=== PATIENT | female | born 1945 | race Caucasian/White ===

== ENCOUNTER 2016-06-21 15:07 | Inpatient (IN) | payer MEDICARE, BC ==
[~2016-06-21] VITALS: Ht 167.6 cm; Wt 81.3 kg
[2016-06-22] MEDS ORDERED: MEDR2.5T2 PO (09:31)
[2016-06-22] MEDS ORDERED: LIPI10TA PO (09:31)
[2016-06-22] MEDS ORDERED: ESTR1 PO (09:31)
[2016-06-22] MEDS ORDERED: OCUVCAP3 PO (09:41)
[2016-06-27] VITALS (10 sets, daily range): BP systolic 100–148; BP diastolic 55–80; PULSE 81–107; RESP 11–16; TEMP 97.6–98.9; O2SAT 89–98
[2016-06-27] MEDS ORDERED: HEPARIN SODIUM - SQ 10,000 UNITS/ML VIAL SQ ONE (05:00)
[2016-06-27] MEDS ORDERED: ceFAZolin INJ 1,000 MG VIAL IV ONE (05:00)
[2016-06-27] MEDS ORDERED: AMINOCAPROIC ACID INJ 250 MG/ML 20 ML VIAL IV ONE (05:00)
[2016-06-27] MEDS ORDERED: NEOSTIGMINE METHYLSULFATE 10 MG/10 ML VIAL IV PUSH ONE (05:00)
[2016-06-27] MEDS ORDERED: MAGNESIUM SULFATE 1000 MG/2 ML VIAL (PED) IV ONE (05:00)
[2016-06-27] MEDS ORDERED: CALCIUM CHLORIDE 10% SOLN 1 GRAM/10 ML SYR IV ONE (05:00)
[2016-06-27] MEDS ORDERED: PROTAMINE SULFATE 250 MG/25 ML VIAL IV ONE ×2 (05:00→12:00)
[2016-06-27] MEDS ORDERED: PHENYLEPHRINE HCL 10 MG/ML VIAL IV ONE (05:00)
[2016-06-27] MEDS ORDERED: LACTATED RINGER'S 1000 ML IV PRN (05:45)
[2016-06-27] MEDS ORDERED: POVIDONE IODINE 5% (ANTISEPSIS KIT) 4 APPLICATIONS EACH NARE PRN (05:45)
[2016-06-27] MEDS ORDERED: SODIUM CHLORIDE 0.9% FLUSH 10 ML FLUSH IV FLUSH PRN (05:45)
[2016-06-27] MEDS ORDERED: ceFAZolin 2 GM PREMIX 50 ML IV SCH (05:45)
[2016-06-27] MEDS ORDERED: CEFAZOLIN 500 MG in NS IRR BTL 500 ML IRRIGATION SCH (05:45)
[2016-06-27] MEDS ORDERED: CHLORHEXIDINE GLUCONATE 2 % 1 PACK (2 CLOTHS) TOPICAL PRN (05:45)
[2016-06-27] MEDS ORDERED: CHLORHEXIDINE GLUCONATE 4% SOLN 120 ML BTL TOPICAL SCH (05:45)
[2016-06-27] MEDS ORDERED: METOPROLOL TARTRATE 25 MG TAB PO SCH (05:45)
[2016-06-27] MEDS ORDERED: SODIUM CHLORID 0.9% 500 ML IV PRN (05:45)
[2016-06-27] MEDS ORDERED: INSULIN REGULAR 100 UNITS in NS 100 ML IV SCH (05:45)
[2016-06-27] MEDS ORDERED: VANCOMYCIN HCL 1000 MG VIAL ONE (06:25)
[2016-06-27] MEDS ORDERED: HEPARIN SODIUM - SQ 10,000 UNITS/ML VIAL ONE (06:25)
[2016-06-27] MEDS ORDERED: ceFAZolin 2 GM PREMIX 50 ML ONE (06:25)
[2016-06-27] MEDS ORDERED: methylPREDNISolone SOD SUCC 125 MG/2 ML VIAL ONE (06:26)
[2016-06-27] MEDS ORDERED: CUSTODIOL HTK IRR SOLN 1,000 ML ONE (07:35)
[2016-06-27] MEDS ORDERED: POTASSIUM CHLORIDE 20 MEQ/10 ML VIAL ONE (07:36)
[2016-06-27] MEDS ORDERED: MANNITOL INJ 50 ML ONE (07:36)
[2016-06-27] MEDS ORDERED: HEPARIN SODIUM - IV 10,000 UNITS/10 ML VIAL ONE (07:36)
[2016-06-27] MEDS ORDERED: SODIUM BICARBONATE 8.4% INJ 50 MEQ/50 ML SYR ONE (07:37)
[2016-06-27] MEDS ORDERED: ALBUMIN HUMAN 25% 12.5 GM/50 ML BAGP IV ONE (07:38)
[2016-06-27] MEDS ORDERED: VECURONIUM BROMIDE 20 MG VIAL IV ONE (12:00)
[2016-06-27] MEDS ORDERED: LACTATED RINGER'S 1000 ML INJ 500 ML IV PRN (12:06)
[2016-06-27] MEDS ORDERED: POTASSIUM CHLOR 20 MEQ PREMIX 100 ML IV PRN ×2 (12:15)
[2016-06-27] MEDS ORDERED: DEXTROSE 50% IN WATER 50 ML VIAL(D50) IV PUSH PRN (12:15)
[2016-06-27] MEDS ORDERED: POTASSIUM CHLORIDE 20 MEQ CONTROLLED RELEASE TAB PO PRN ×2 (12:15)
[2016-06-27] MEDS ORDERED: hydrALAZINE HCL 20 MG/ML VIAL IV PRN (12:15)
[2016-06-27] MEDS ORDERED: ACETAMINOPHEN 650 MG SUPP RECTAL PRN (12:15)
[2016-06-27] MEDS ORDERED: ACETAMINOPHEN 325 MG TAB PO PRN (12:15)
[2016-06-27] MEDS ORDERED: INSULIN REGULAR (IV INFUSION) 100 UNITS in SODIUM CHLORIDE 0.9% INJ 99 ML IV SCH (12:15)
[2016-06-27] MEDS ORDERED: ONDANSETRON HCL 4 MG/2 ML VIAL IV PUSH PRN (12:15)
[2016-06-27] MEDS ORDERED: CALCIUM CHLORIDE 10% 1 GRAM/10 ML VIAL IV PRN (12:15)
[2016-06-27] MEDS ORDERED: MAGNESIUM SULFATE INJ 2 GM in SODIUM CHLORIDE 0.9% INJ 100 ML IV PRN ×4 (12:15)
[2016-06-27] MEDS ORDERED: CLEVIDIPINE INJ 50 ML IV SCH (12:15)
[2016-06-27] MEDS ORDERED: Post-op Orders (for Pharmacy) MISC OTHER ONE (12:15)
[2016-06-27] MEDS ORDERED: MIDAZOLAM HCL 5 MG/5 ML VIAL ONE (13:01)
[2016-06-27] MEDS ORDERED: fentaNYL CITRATE 1000 MCG/20 ML VIAL ONE (13:01)
[2016-06-27] MEDS: ACETAMINOPHEN 1000 MG/100 ML VIAL IV SCH ×2 (13:03→20:40)
[2016-06-27] MEDS: POTASSIUM CHLOR 20 MEQ PREMIX 100 ML IV PRN (13:03)
--- NOTE | 2016-06-27 13:13 | RADRPT ---
EXAM DATE/TIME: 06/27/2016 12:32 [facility] COMPARISON: CHEST SINGLE AP, March 07, 2014, 21:47. INDICATIONS : Post CABG. MEDICAL HISTORY : Hypertension. Hypercholesterolemia. SURGICAL HISTORY : None. ENCOUNTER: Initial ACUITY: 1 day PAIN SCORE: Non-responsive. LOCATION: Bilateral chest FINDINGS: A single view of the chest demonstrates CABG. Right jugular central line with tip in the right atrium . Mediastinal chest tube noted. Nasogastric tube with tip in stomach. Endotracheal tube with tip 5.5 cm above the francis. Bibasilar atelectasis. Heart in the upper limits of normal in size. Osseous str uctures are intact. CONCLUSION: 1. Status post CABG. 2. Bibasilar atelectasis. 3. Support lines and tubes as described above. Blake Cannon MD on June 27, 2016 at 13:09 Board Certified Radiologist. This report was verified electronically.
[2016-06-27] MEDS: CALCIUM CHLORIDE INJ 1 GM in SODIUM CHLORIDE 0.9% INJ 100 ML IV PRN ×2 (13:20→15:28)
[2016-06-27] MEDS ORDERED: RESP: RACEPINEPHRINE 2.25% 0.5 ML NEB NEB PRN (13:45)
[2016-06-27] MEDS ORDERED: RESP: ALBUTEROL 2.5 MG/IPRATROPIUM 0.5 MG NEB (PRN) NEB (13:45)
[2016-06-27] MEDS: RESP: ALBUTEROL 2.5 MG/IPRATROPIUM 0.5 MG NEB (SCH) NEB ×2 (16:53→21:56)
[2016-06-27] MEDS: oxyCODONE/ACETAMINOPHEN 5 MG/325 MG TAB PO PRN (20:39)
[2016-06-27] MEDS ORDERED: AMIODARONE 200 MG TAB PO SCH (21:00)
[2016-06-27] MEDS: METOPROLOL TARTRATE 5 MG/5 ML VIAL IV PUSH PRN ×2 (22:04→23:31)
[2016-06-28] VITALS (16 sets, daily range): BP systolic 107–135; BP diastolic 45–72; PULSE 93–112; RESP 16–20; TEMP 97.8–99.2; O2SAT 94–100
[2016-06-28] MEDS: oxyCODONE/ACETAMINOPHEN 5 MG/325 MG TAB PO PRN ×2 (00:05→03:39)
[2016-06-28] MEDS: ACETAMINOPHEN 1000 MG/100 ML VIAL IV SCH ×2 (01:53→09:37)
[2016-06-28] MEDS: RESP: ALBUTEROL 2.5 MG/IPRATROPIUM 0.5 MG NEB (SCH) NEB ×3 (04:00→19:38)
[2016-06-28 05:20] LABS: HEMATOCRIT 33.4 % (35.0-46.0); MEAN CELL VOLUME 95.4 FL (80.0-100.0); MEAN CORPUSCULAR HEMOGLOBIN 31.5 PG (27.0-34.0); RED CELL DISTRIBUTION WIDTH 13.9 % (11.6-17.2); WHITE BLOOD COUNT 15.6 TH/MM3 (4.0-11.0)
--- NOTE | 2016-06-28 05:32 | RADRPT ---
EXAM DATE/TIME: 06/28/2016 03:59 [facility] COMPARISON: CHEST SINGLE AP, June 27, 2016, 12:32. INDICATIONS : Shortness of breath. MEDICAL HISTORY : None. SURGICAL HISTORY : CABG. ENCOUNTER: Subsequent ACUITY: 4 - 6 days PAIN SCORE: 0/10 LOCATION: Bilateral chest FINDINGS: The cardiac silhouette is enlarged in transverse diameter. There are findings of congestive heart alfa lure with interstitial and alveolar opacity bilaterally. Small left effusion is present. The findings have worsened when compared with the prior examination. CONCLUSION: 1. Cardiomegaly and findings of congestive heart failure. The findings have worsened when compared wi th the prior examination.8 Momo Partida MD on June 28, 2016 at 5:29 Board Certified Radiologist. This report was verified electronically.
[2016-06-28 05:53] LABS: BICARBONATE 19.3 MEQ/L (21.0-32.0); MAGNESIUM 1.7 MG/DL (1.5-2.5); POTASSIUM 3.9 MEQ/L (3.5-5.1)
[2016-06-28] MEDS ORDERED: MAGNESIUM SULFATE 2 GM/NS 100 ML IV ONE ×2 (06:00)
[2016-06-28] MEDS ORDERED: AMIODARONE 150 MG/D5W 97 ML BOLUS 10 MINUTES IV ONE ×2 (06:00)
[2016-06-28] MEDS: PANTOPRAZOLE SOD 40 MG DELAYED RELEASE TAB PO SCH (06:00)
[2016-06-28] MEDS: POTASSIUM CHLOR 20 MEQ PREMIX 100 ML IV PRN (06:24)
[2016-06-28 06:45] LABS: PLATELET COUNT 48 TH/MM3 (150-450); REVIEW FLAG FINAL
--- NOTE | 2016-06-28 07:53 | EKG ---
Date Performed: 06/28/2016 Time Performed: 04:47:36 PTAGE: 70 years EKG: Sinus tachycardia. Left bundle branch block Consider inferior RI, age undetermined Abnormal ECG PREVIOUS TRACING : 06/22/2016 09.16 No significant change from previous tracing noted. DOCTOR: Ruddy Iyer Interpretating Date/Time 06/28/2016 07:52:43
[2016-06-28] MEDS: ESTRADIOL 1 MG TAB PO SCH (09:00)
[2016-06-28] MEDS: ASPIRIN 81 MG CHEW TAB PO SCH (09:00)
--- NOTE | 2016-06-28 09:11 | PD.OP ---
cc: Momo Blackwell MD; Elida Farley MD Operative Report Date of Surgery: June 28, 2016 Preoperative Diagnosis: (1) Shortness of breath (2) LBBB (left bundle branch block) (3) Mitral regurgitation (4) Aortic stenosis due to bicuspid aortic valve (5) Diastolic CHF due to valvular disease Postoperative Diagnosis: same Procedure: Mitral valve repair with a 26 Jon annuloplasty ring AVR with a 21 Trifecta tissue valve THERON Anesthesia: Dr. Morel Surgeon: Elida Farley Clothing Supervisor(s): Jayden Vaughn Operation and Findings: The risks, benefits, complications, treatment options, and expected outcomes were discussed with the patient. The possibilities of reaction to medication, pulmonary aspiration, perforation of viscus, bleeding, recurrent infection, the need for additional procedures, failure to diagnose a condition, and creating a complication requiring transfusion or operation were discussed with the patient. The patient concurred with the proposed plan, giving informed consent. The site of surgery properly noted/marked. The patient was taken to Operating Room, identified as Ana Mccall and the procedure verified as Mitral Valve Repair or Replacement, Aortic Valve Replacement, THERON. A Time Out was held and the above information confirmed. Standard monitoring lines and Singh catheter were placed. General anesthesia was induced. The patient was prepped and draped in a sterile fashion. A median sternotomy was performed and electrocautery was used to obtain hemostasis. The pericardium was opened and a pericardial sling was created using interrupted 0 silk sutures. The patient was heparinized for cardiopulmonary bypass. The heart was instrumented for cardiopulmonary bypass in the usual manner Antegrade custodiol cardioplegia was employed. The patient was placed on cardiopulmonary bypass. The left atrial appendage was resected using a surgical stapler and submitted to pathology. An aortic cross-clamp was applied and the heart was arrested using cold custodiol cardioplegia. Waterston's groove was developed using electrocautery. The left atrium was opened, and the mitral valve was exposed using an automatic retractor. The valve was analyzed and sized to a 26 [place] Jon annuloplasty ring which was seated using several interrupted 2-0 Tycron horizontal mattress sutures. After securing the sutures, the valve repair was tested and felt to be excellent. The left atrium was closed using a running 4-0 Prolene suture and aorta was opened above the sinotubular ridge. The aortic valve was found to be heavily calcified and fucntionally bicuspid with fusion of the right and left cusps. The valve was excised and the annulus debrided of calcium with rongeurs. The annulus was sized to a 21 Trifecta tissue valve which was seated using several 2-0 Tycron pledgeted horizontal mattress sutures. The right aorta was closed using a running 4-0 Prolene suture. The patient was systemically rewarmed. The heart was vigorously deaired with a clamp on. The patient was placed in Trendelenburg's position. The clamp was removed, deairing continued. Intraoperative THERON was used to assess intracardiac air and the valves. The heart was loaded and allowed to eject and the mitral and aortic valves were analyzed by THERON. The MV repair was excellent with trace regurgitation. The aortic valve was well-seated with no perivalvular leak observed. The patient was weaned from cardiopulmonary bypass. Protamine was given. There was no adverse reaction. Decannulation was carried out without incident. Wound was checked for hemostasis which was obtained using electrocautery. A 36 Turkmen mediastinal chest tube was placed and secured to the skin with 0 silk suture. The sternum was closed with stainless steel wire. The fascia was closed with 1. PDS. The subcutaneous tissue was closed using a running 2-0 Vicryl suture. The skin was closed with 4-0 Monocryl. Sterile dressings were placed. At the end of the operation, all sponge, instruments, and needle counts were correct. The patient was transferred to the CICU in stable condition. XC: 133 min CPB: 165 min Drains: mediastinal x 1 Specimens: aortic valve, left atrial appendage Implants: 26 Finley annuloplasty ring, 21 Trifecta tissue valve Complications: none Disposition: to CVICU in stable condition Elida Farley MD June 28, 2016 09:11
[2016-06-28] MEDS ORDERED: BISACODYL 10 MG SUPP RECTAL PRN (09:15)
[2016-06-28] MEDS ORDERED: INSULIN DETEMIR 100 UNITS/ML VIAL SQ ONE (09:15)
[2016-06-28] MEDS ORDERED: SOD PHOSPHATE/SOD BIPHOSPHATE (ADULT) ENEMA 133ML RECTAL PRN (09:15)
[2016-06-28] MEDS ORDERED: DEXTROSE 50% IN WATER 50 ML VIAL(D50) IV PRN (09:15)
[2016-06-28] MEDS ORDERED: FUROSEMIDE 40 MG/4 ML VIAL IV PUSH ONE (09:15)
[2016-06-28] MEDS ORDERED: AMIODARONE 200 MG TAB PO ONE (09:15)
[2016-06-28] MEDS ORDERED: GLUCAGON 1 MG/ML VIAL OTHER PRN (09:15)
[2016-06-28] MEDS ORDERED: POTASSIUM CHLORIDE 20 MEQ CONTROLLED RELEASE TAB PO ONE (09:30)
[2016-06-28] MEDS: INSULIN ASPART SUPPLEMENTAL SCALE SQ SCH ×4 (10:00→21:48)
[2016-06-28] MEDS: METOPROLOL TARTRATE 25 MG TAB PO SCH ×2 (10:05→21:49)
--- NOTE | 2016-06-28 14:40 | PD.CAR.PN ---
CVT Progress Note Subjective/Hospital Course: 70/ female hx of non obstructing CAD, severe , MR systolic and diastolic CHF EF 40%PMH : PMH: recent shingles DM ( diet controlled ) HTN , uterine dysfunction , L BBB surgery: 06/27 Mitral valve repair with a 26 Jon annuloplasty ring AVR with a 21 Trifecta tissue valve 500cc cell saver, 1500cc urine / extubated after surgery, mild nauseated , ? afib last pm bolus amiodarone , rate improved , po dose increased gentle diuresis transfer to stepdown later today PLT down to 48/ hold ASA ( preop 157) Objective: GENERAL: SKIN: Warm and dry. dressing D&I mid sternum HEAD: Normocephalic. EYES: No scleral icterus. No injection or drainage. NECK: Supple, trachea midline. No JVD or lymphadenopathy. CARDIOVASCULAR: Regular rate and rhythm without murmurs, gallops, or rubs. RESPIRATORY: Breath sounds equal bilaterally.few basilar crackles chest tube to wall suction / drained 230cc/ 12 hrs GASTROINTESTINAL: Abdomen soft, non-tender, nondistended. MUSCULOSKELETAL: No cyanosis, or edema. BACK: Nontender without obvious deformity. No CVA tenderness. Vital Signs Date Time Temp Pulse Resp B/P Pulse Ox O2 Delivery O2 Flow Rate FiO2 06/28/16 13:03 98 Nasal Cannula 3.00 06/28/16 13:02 98.4 93 16 135/72 99 06/28/16 12:21 98 Nasal Cannula 5.00 06/28/16 11:33 98.5 97 16 114/54 96 Arterial Line 06/28/16 11:31 96 06/28/16 10:38 16 06/28/16 09:42 95 Nasal Cannula 5.00 06/28/16 08:15 94 Nasal Cannula 5.00 06/28/16 07:15 97.8 111 16 110/52 94 107/56 06/28/16 07:15 107 06/28/16 04:00 94 Nasal Cannula 5.00 06/28/16 03:00 99.2 112 16 113/56 95 114/45 06/28/16 03:00 110 06/28/16 00:00 97 Simple Mask 10.00 06/27/16 23:00 98.5 107 16 136/75 95 146/63 06/27/16 23:00 97 06/27/16 21:57 94 Simple Mask 10.00 06/27/16 20:00 94 Simple Mask 10.00 06/27/16 19:15 98.9 96 12 148/80 94 142/68 06/27/16 19:00 97 06/27/16 17:00 95 Simple Mask 6.00 06/27/16 16:45 94 Simple Mask 8.00 06/27/16 16:00 95 Simple Mask 6.00 06/27/16 15:00 97.6 81 16 129/67 93 130/59 06/27/16 15:00 91 Nasal Cannula 6.00 06/27/16 15:00 81 Labs: Laboratory Tests Test 06/28/16 05:00 White Blood Count 15.6 TH/MM3 (4.0-11.0) Red Blood Count 3.50 MIL/MM3 (4.00-5.30) Hemoglobin 11.0 GM/DL (11.6-15.3) Hematocrit 33.4 % (35.0-46.0) Mean Corpuscular Volume 95.4 FL (80.0-100.0) Mean Corpuscular Hemoglobin 31.5 PG (27.0-34.0) Mean Corpuscular Hemoglobin 33.0 % Concent (32.0-36.0) Red Cell Distribution Width 13.9 % (11.6-17.2) Platelet Count 48 TH/MM3 (150-450) Mean Platelet Volume 9.2 FL (7.0-11.0) Sodium Level 141 MEQ/L (136-145) Potassium Level 3.9 MEQ/L (3.5-5.1) Chloride Level 111 MEQ/L (98-107) Carbon Dioxide Level 19.3 MEQ/L (21.0-32.0) Anion Gap 11 MEQ/L (5-15) Blood Urea Nitrogen 21 MG/DL (7-18) Creatinine 0.67 MG/DL (0.50-1.00) Estimat Glomerular Filtration 87 ML/MIN (>89) Rate Random Glucose 135 MG/DL (74-106) Calcium Level 7.7 MG/DL (8.5-10.1) Magnesium Level 1.7 MG/DL (1.5-2.5) Result Diagram: 06/28/16 0500 5/2/17 0500 Telemetry: NSR (1) S/P mitral valve repair (2) S/P AVR (aortic valve replacement) Plan: hold ASA on amiodarone, start nehal when BP tolerates pulm toileting nebs ezpap acapella OOB, ambulate CM to eval home health care (3) Aortic stenosis due to bicuspid aortic valve (4) Mitral regurgitation (5) HTN (hypertension) (6) LBBB (left bundle branch block) (7) Shortness of breath (8) 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
--- NOTE | 2016-06-28 14:47 | HHI.FF ---
Face to Face Verification Diagnosis: (1) LBBB (left bundle branch block) (2) Mitral regurgitation (3) Aortic stenosis due to bicuspid aortic valve (4) Diastolic CHF due to valvular disease (5) Thrombocytopenia (6) HTN (hypertension) (7) S/P mitral valve repair (8) S/P AVR (aortic valve replacement) Home Health Nursing Order: Signs/symptoms of disease process CHF education Wound care and dressing changes Nursing assessment with vital signs Instructions: Heart and Vascular Surgery patients *Special attention to sternal dressing Mandatory frequency Assess and evaluation, 4 days in a row The next week 3X week 2 times a week for 4 weeks 1 time a week for 5 weeks Schedule Heart and Vascular patients for full 60 day certification period Initial visit Review Open Heart Surgery Discharge Instructions (Sternal precautions, Activity, Elastic hose, Incision care, Driving, Incentive spirometry, Smoking, [place], Work and other) Need Betadine to paint incision Medication reconciliation Importance of follow up care/ check on appointments Make calendar record temperature daily When to call [facility] nurse, review instructions, phone list Incentive Spirometry, demonstration Visit 1- Begin discharge instruction for patient family and/ or caregiver using teach back method- Signs and symptoms of infection Disease characteristics Medicines and side effects Foods and nutrition/ appetite Infection control/ hand washing/ hygiene Visit 2- Continue teaching Discharge instructions- include additional information on smoking cessation , sternal dressing (sternal vac) Visit 3- Continue teaching- Cough and deep breathing, incision monitoring. Choose my plate Visit 4- Continue teaching- Discuss limitations Discuss how they are feeling Discuss progress toward goals Remaining visits- continue teaching and monitoring Incentive spirometry Q1 hr x 10, while awake, also use acapella device hourly whole awake Sternal Breast Bone Precautions: NO pushing or pulling, ( pt must use sternal pillow to support chest with all activities and with coughing ( takes up to 3 months breast bone to heal ) All females to wear sternal bra , launder as needed Daily incision care: ok to shower daily, no tub bath. Wash all incisions with liquid dial soap, clean wash cloth to each site, rinse and pat dry. Observe for any signs of infection, such as drainage which is dark yellow, balbuena, green or foul smelling. Immediately report to the surgeon any drainage from the chest incision, or legs, and for any abnormal drainage from the chest tube sites. Notify surgeon if any temp >101.5 degrees F. When specialty dressing removed/ or if you do not have one, continue to shower daily as above, then rinse and pat incision dry and paint with betadine daily x 5 days. Allow steri strips to fall off if you have any. Avoid lotions, creams, salves, oils, etc. for the first month For Dr. Farley patients , please obtain CBC, BMP, PA & Lat CXR in 2 weeks, results to Dr. Farley ( prescription will be given) ( ) (Tele: [phone]) , Valve replacement pts will need 2decho in 2 weeks with results to Dr. Farley . Please obtain 2 d echo at your precision agriculture specialist office if possible F/U appointment: as per DC instructions: PCP in 2 weeks, CV surgeon 2 weeks, Commercial Production Editor 3-4 weeks For any questions regarding incisions/ dressing / meds / post op care or above Symptoms, Monday 8am-5pm Heart & Vascular Surgery Office ( Dr. Galvan & Dr. Farley), After Hours / Nights (5pm -8am) Weekends and Holidays Please call [facility] ([facility]) Charge Nurse I have seen patient Ana Mccall on 06/28/16. My clinical findings support the need for the requested home health care services because: Deconditioned w/ increased weakness I certify that my clinical findings support that this patient is homebound because: Post-op weakness Nova Benton June 28, 2016 14:47
[2016-06-28 16:53] LABS: HEMOGLOBIN A1b 1.4 %; HEMOGLOBIN Ao 85.7 %; HEMOGLOBIN P3 3.9 %
[2016-06-28] MEDS: ATORVASTATIN 10 MG TAB PO SCH (21:48)
[2016-06-28] MEDS: DOCUSATE SODIUM 100 MG CAP PO SCH (21:48)
[2016-06-28] MEDS: SENNOSIDES 8.6 MG TAB PO SCH (21:49)
[2016-06-28] MEDS: AMIODARONE 200 MG TAB PO SCH (21:49)
[2016-06-29] VITALS (28 sets, daily range): BP systolic 103–130; BP diastolic 53–70; PULSE 66–94; RESP 16–20; TEMP 97.6–98.6; O2SAT 94–100
[2016-06-29] MEDS: INSULIN ASPART SUPPLEMENTAL SCALE SQ SCH ×5 (02:00→21:28)
[2016-06-29 05:22] LABS: AUTOMATED NEUTROPHIL # 12.8 TH/MM3 (1.8-7.7); BASOPHIL % 0.1 % (0.0-2.0); HEMATOCRIT 32.6 % (35.0-46.0); LYMPH % 5.8 % (9.0-44.0); LYMPHOCYTE # 0.9 TH/MM3 (1.0-4.8); MEAN CELL VOLUME 95.6 FL (80.0-100.0); MEAN CORPUSCULAR HEMOGLOBIN 32.2 PG (27.0-34.0); MEAN CORPUSCULAR HGB CONC 33.7 % (32.0-36.0); MONO % 14.3 % (0.0-8.0); NEUT % 79.8 % (16.0-70.0); PLATELET COUNT 47 TH/MM3 (150-450); RED BLOOD COUNT 3.41 MIL/MM3 (4.00-5.30); WHITE BLOOD COUNT 16.1 TH/MM3 (4.0-11.0)
[2016-06-29 05:27] LABS: HEMO FLAGS AUTO DIFF
[2016-06-29 05:41] LABS: BICARBONATE 25.7 MEQ/L (21.0-32.0); MAGNESIUM 2.1 MG/DL (1.5-2.5); POTASSIUM 4.7 MEQ/L (3.5-5.1)
[2016-06-29] MEDS: PANTOPRAZOLE SOD 40 MG DELAYED RELEASE TAB PO SCH (06:22)
[2016-06-29 06:52] LABS: BANDS 5 % (0-6); POLYS (SEG NEUTROPHILS) 82 % (16-70); WBC DIFF SAMPLE 100
[2016-06-29 06:54] LABS: PLATELET ESTIMATE SMEAR LOW (NORMAL); PLATELET MORPHOLOGY NORMAL (NORMAL); SCAN/DIFF FINAL DIFF MANUAL
[2016-06-29] MEDS: POLYETHYLENE GLYCOL 17 GM PKG PO SCH (09:00)
[2016-06-29] MEDS: MAGNESIUM HYDROXIDE SUSP 30 ML CUP PO SCH (09:00)
[2016-06-29] MEDS: ASPIRIN 81 MG CHEW TAB PO SCH (09:33)
[2016-06-29] MEDS: FUROSEMIDE 40 MG/4 ML VIAL IV PUSH SCH ×2 (09:34→17:51)
[2016-06-29] MEDS: DOCUSATE SODIUM 100 MG CAP PO SCH ×2 (09:34→21:25)
[2016-06-29] MEDS: METOPROLOL TARTRATE 25 MG TAB PO SCH ×2 (09:34→21:26)
[2016-06-29] MEDS: MULTIVITAMINS/MINERALS THERAPEUTIC TAB PO SCH (09:34)
[2016-06-29] MEDS: AMIODARONE 200 MG TAB PO SCH ×2 (09:35→21:25)
[2016-06-29] MEDS: ESTRADIOL 1 MG TAB PO SCH (09:35)
[2016-06-29] MEDS: SODIUM CHLORIDE 0.9% FLUSH 10 ML FLUSH IV FLUSH PRN (09:36)
--- NOTE | 2016-06-29 11:31 | PD.CAR.PN ---
CVT Progress Note CVT: POD #: 2 Subjective/Hospital Course: 70/ female hx of non obstructing CAD, severe , MR systolic and diastolic CHF EF 40%PMH : PMH: recent shingles DM ( diet controlled ) HTN , uterine dysfunction , L BBB surgery: 06/27 Mitral valve repair with a 26 Jon annuloplasty ring AVR with a 21 Trifecta tissue valve 500cc cell saver, 1500cc urine 06/28 extubated after surgery, mild nauseated , ? afib last pm bolus amiodarone , rate improved , po dose increased gentle diuresis transfer to stepdown later today PLT down to 48/ hold ASA ( preop 157) 06/29/16 No complaints today, doing well Objective: Vital Signs Date Time Temp Pulse Resp B/P Pulse Ox O2 Delivery O2 Flow Rate FiO2 06/29/16 10:00 82 06/29/16 09:00 92 06/29/16 08:30 95 21 06/29/16 08:00 86 06/29/16 07:00 100 Nasal Cannula 3.00 06/29/16 07:00 87 06/29/16 07:00 98.3 86 17 130/67 100 06/29/16 05:00 94 06/29/16 04:00 94 06/29/16 03:26 100 Nasal Cannula 3.00 06/29/16 03:26 98.6 91 20 120/70 100 06/29/16 03:00 89 06/29/16 02:00 92 06/29/16 01:00 92 06/29/16 00:00 100 Nasal Cannula 3.00 06/29/16 00:00 98.6 94 20 122/67 100 06/29/16 00:00 92 06/28/16 23:00 97 06/28/16 22:00 106 06/28/16 21:00 98 06/28/16 20:00 100 Nasal Cannula 3.00 06/28/16 20:00 100 06/28/16 20:00 98.6 100 20 128/67 100 06/28/16 19:39 100 Nasal Cannula 3.00 06/28/16 19:00 94 06/28/16 18:00 97 06/28/16 17:00 99 06/28/16 16:00 97 06/28/16 15:00 99 06/28/16 15:00 100 Nasal Cannula 3.00 06/28/16 15:00 98.1 100 20 128/66 100 06/28/16 13:03 98 Nasal Cannula 3.00 06/28/16 13:02 98.4 93 16 135/72 99 06/28/16 12:21 98 Nasal Cannula 5.00 06/28/16 11:33 98.5 97 16 114/54 96 Arterial Line 06/28/16 11:31 96 Labs: Laboratory Tests Test 06/29/16 05:00 White Blood Count 16.1 TH/MM3 (4.0-11.0) Red Blood Count 3.41 MIL/MM3 (4.00-5.30) Hemoglobin 11.0 GM/DL (11.6-15.3) Hematocrit 32.6 % (35.0-46.0) Mean Corpuscular Volume 95.6 FL (80.0-100.0) Mean Corpuscular Hemoglobin 32.2 PG (27.0-34.0) Mean Corpuscular Hemoglobin 33.7 % Concent (32.0-36.0) Red Cell Distribution Width 14.0 % (11.6-17.2) Platelet Count 47 TH/MM3 (150-450) Mean Platelet Volume 9.2 FL (7.0-11.0) Neutrophils (%) (Auto) 79.8 % (16.0-70.0) Lymphocytes (%) (Auto) 5.8 % (9.0-44.0) Monocytes (%) (Auto) 14.3 % (0.0-8.0) Eosinophils (%) (Auto) 0.0 % (0.0-4.0) Basophils (%) (Auto) 0.1 % (0.0-2.0) Neutrophils # (Auto) 12.8 TH/MM3 (1.8-7.7) Lymphocytes # (Auto) 0.9 TH/MM3 (1.0-4.8) Monocytes # (Auto) 2.3 TH/MM3 (0-0.9) Eosinophils # (Auto) 0.0 TH/MM3 (0-0.4) Basophils # (Auto) 0.0 TH/MM3 (0-0.2) CBC Comment AUTO DIFF Differential Total Cells 100 Counted Neutrophils % (Manual) 82 % (16-70) Band Neutrophils % 5 % (0-6) Lymphocytes % 3 % (9-44) Monocytes % 10 % (0-8) Neutrophils # (Manual) 14.0 TH/MM3 (1.8-7.7) Differential Comment FINAL DIFF MANUAL Platelet Estimate LOW (NORMAL) Platelet Morphology Comment NORMAL (NORMAL) Red Cell Morphology Comment NORMAL (NORMAL) Sodium Level 138 MEQ/L (136-145) Potassium Level 4.7 MEQ/L (3.5-5.1) Chloride Level 107 MEQ/L (98-107) Carbon Dioxide Level 25.7 MEQ/L (21.0-32.0) Anion Gap 5 MEQ/L (5-15) Blood Urea Nitrogen 22 MG/DL (7-18) Creatinine 0.81 MG/DL (0.50-1.00) Estimat Glomerular Filtration 70 ML/MIN (>89) Rate Random Glucose 140 MG/DL (74-106) Calcium Level 8.3 MG/DL (8.5-10.1) Magnesium Level 2.1 MG/DL (1.5-2.5) Result Diagram: 06/29/16 0500 06/29/16 0500 Cardiovascular: RRR Telemetry: NSR Pulmonary: Few bilateral crackles GI/: NABS, NT Incision: dry and intact CT: 100ml / 12 hrs Plan: Diurese Remove chest tubes Increase ambulation Stim BM Anticipate discharge tomorrow or Monday (1) S/P mitral valve repair (2) S/P AVR (aortic valve replacement) Plan: hold ASA on amiodarone, start nehal when BP tolerates pulm toileting nebs ezpap acapella OOB, ambulate CM to [facility] home health care (3) Aortic stenosis due to bicuspid aortic valve (4) Mitral regurgitation (5) HTN (hypertension) (6) LBBB (left bundle branch block) (7) Shortness of breath (8) Diastolic CHF due to valvular disease Plan: gentle diuresis (9) Thrombocytopenia Plan: hold ASA for PLT <70K Elida Farley MD June 29, 2016 11:31
[2016-06-29] MEDS: SENNOSIDES 8.6 MG TAB PO SCH (21:25)
[2016-06-29] MEDS: ATORVASTATIN 10 MG TAB PO SCH (21:26)
[2016-06-30] VITALS (18 sets, daily range): BP systolic 110–126; BP diastolic 54–65; PULSE 65–98; RESP 18–19; TEMP 97.8–98; O2SAT 98–99
[2016-06-30] MEDS: PANTOPRAZOLE SOD 40 MG DELAYED RELEASE TAB PO SCH (06:28)
[2016-06-30] MEDS: INSULIN ASPART SUPPLEMENTAL SCALE SQ SCH ×2 (06:30→12:15)
[2016-06-30] MEDS: ASPIRIN 81 MG CHEW TAB PO SCH (09:00)
[2016-06-30] MEDS: POLYETHYLENE GLYCOL 17 GM PKG PO SCH (10:01)
[2016-06-30] MEDS: MAGNESIUM HYDROXIDE SUSP 30 ML CUP PO SCH (10:01)
[2016-06-30] MEDS: FUROSEMIDE 40 MG/4 ML VIAL IV PUSH SCH (10:01)
[2016-06-30] MEDS: MULTIVITAMINS/MINERALS THERAPEUTIC TAB PO SCH (10:02)
[2016-06-30] MEDS: AMIODARONE 200 MG TAB PO SCH (10:02)
[2016-06-30] MEDS: METOPROLOL TARTRATE 25 MG TAB PO SCH (10:02)
[2016-06-30] MEDS: ESTRADIOL 1 MG TAB PO SCH (10:02)
[2016-06-30] MEDS: DOCUSATE SODIUM 100 MG CAP PO SCH (10:02)
[2016-06-30] MEDS: SODIUM CHLORIDE 0.9% FLUSH 10 ML FLUSH IV FLUSH PRN (10:03)
[2016-06-30] MEDS ORDERED: MISC-163 (13:42)
[2016-06-30] MEDS ORDERED: Aspirin Chew PO (13:42)
[2016-06-30] MEDS ORDERED: GETGO ROLLING W1 MI1 (13:42)
[2016-06-30] MEDS ORDERED: METO25TA3 PO (13:42)
[2016-06-30] MEDS ORDERED: DOCU1CAP39 PO (13:42)
[2016-06-30] MEDS ORDERED: AMIO200T PO (13:42)
--- NOTE | 2016-06-30 13:46 | HHI.DS ---
Discharge Summary Admission Date June 27, 2016 at 05:14 Discharge Date: June 30, 2016 Admitting Diagnosis CBC/BMP: 06/29/16 0500 06/29/16 0500 Significant Findings Laboratory Tests Test 06/28/16 06/29/16 05:00 05:00 White Blood Count 15.6 TH/MM3 16.1 TH/MM3 (4.0-11.0) (4.0-11.0) Red Blood Count 3.50 MIL/MM3 3.41 MIL/MM3 (4.00-5.30) (4.00-5.30) Hemoglobin 11.0 GM/DL 11.0 GM/DL (11.6-15.3) (11.6-15.3) Hematocrit 33.4 % 32.6 % (35.0-46.0) (35.0-46.0) Platelet Count 48 TH/MM3 47 TH/MM3 (150-450) (150-450) Chloride Level 111 MEQ/L (98-107) Carbon Dioxide Level 19.3 MEQ/L (21.0-32.0) Blood Urea Nitrogen 21 MG/DL (7-18) 22 MG/DL (7-18) Estimat Glomerular Filtration 87 ML/MIN (>89) 70 ML/MIN (>89) Rate Random Glucose 135 MG/DL 140 MG/DL (74-106) (74-106) Calcium Level 7.7 MG/DL 8.3 MG/DL (8.5-10.1) (8.5-10.1) Neutrophils (%) (Auto) 79.8 % (16.0-70.0) Lymphocytes (%) (Auto) 5.8 % (9.0-44.0) Monocytes (%) (Auto) 14.3 % (0.0-8.0) Neutrophils # (Auto) 12.8 TH/MM3 (1.8-7.7) Lymphocytes # (Auto) 0.9 TH/MM3 (1.0-4.8) Monocytes # (Auto) 2.3 TH/MM3 (0-0.9) Neutrophils % (Manual) 82 % (16-70) Lymphocytes % 3 % (9-44) Monocytes % 10 % (0-8) Neutrophils # (Manual) 14.0 TH/MM3 (1.8-7.7) Platelet Estimate LOW (NORMAL) Hospital Course 70/ female hx of non obstructing CAD, severe , MR systolic and diastolic CHF EF 40%PMH : PMH: recent shingles DM ( diet controlled ) HTN , uterine dysfunction , L BBB surgery: 06/27 Mitral valve repair with a 26 Jon annuloplasty ring AVR with a 21 Trifecta tissue valve 500cc cell saver, 1500cc urine 06/28 extubated after surgery, mild nauseated , ? afib last pm bolus amiodarone , rate improved , po dose increased gentle diuresis transfer to stepdown later today PLT down to 48/ hold ASA ( preop 157) 06/29/16 No complaints today, doing well 06/30 Discharge home Pt Condition on Discharge: Good Discharge Disposition: Disch w/ Home Health Serv Discharge Instructions DIET: Follow Instructions for: Heart Healthy Diet Activities you can perform: Full Weight Bearing, Shower Only-No Bath Activities to avoid: Lifting/Bending, Strenuous Activity, Driving Follow up Referrals: Cardiology with Momo Blackwell MD New Medications: 3-in-1 Bedside Toilet (3-in-1 Bedside Toilet) 1 Mis Mis 1 EA .XX DIRECTED PRN z #1 Ref 0 EA Walker Rolling/GetGo (Walker Rolling/GetGo) 1 Mis Mis 1 EA .ROUTE DIRECTED #1 EA Amiodarone (Amiodarone) 200 Mg Tab 400 MG PO Q12HR z Days 14 TAB Docusate Sodium (Dok) 100 Mg Cap 100 MG PO BID Constipation Days 14 CAP Metoprolol Tartrate (Metoprolol Tartrate) 25 Mg Tab 12.5 MG PO BID z Days 60 TAB ([Aspirin Chew]) 81 MG CHEW 81 MG PO DAILY z Days 60 TAB.CHEW Continued Medications: Atorvastatin (Lipitor) 10 Mg Tab 10 MG PO M,W,FR Cholesterol Management #30 Ref 0 TAB Estradiol (Estrace) 1 Mg Tab 1 MG PO DAILY Estrogen Supplements #30 Ref 0 TAB Medroxyprogesterone Acetate (Medroxyprogesterone Acetate) 2.5 Mg Tab 2.5 MG PO DAILY Start day 21 Uterine bleeding #5 Ref 0 TAB Nava Galvan MD June 30, 2016 13:46
[2016-06-30] MEDS ORDERED: BISACODYL 10 MG SUPP RECTAL ONE (14:00)
== END 2016-06-30 16:19 | disposition home health service (06) | DRG 220 ==
LOC: HSDI 06-27 05:14 → HCVR 06-27 12:30 → HCIN 06-28 14:59
PROVIDERS: ADMIT Thoracic Surgery (Cardiothoracic Vascular Surgery); ATTEND Thoracic Surgery (Cardiothoracic Vascular Surgery)
PROC: 5A1221Z Performance of Cardiac Output, Continuous (ICD-10-PCS; 2016-06-27)
PROC: B246ZZ4 Ultrasonography of Right and Left Heart, Transesophageal (ICD-10-PCS; 2016-06-27)
PROC: 02UG0JZ Supplement Mitral Valve with Synthetic Substitute, Open Approach (ICD-10-PCS; principal; 2016-06-27 07:14)
PROC: 02RF08Z Replacement of Aortic Valve with Zooplastic Tissue, Open Approach (ICD-10-PCS; 2016-06-27 07:14)
DX: Q23.1 Congenital insufficiency of aortic valve (principal); I50.42 Chronic combined systolic (congestive) and diastolic (congestive) heart failure; D69.6 Thrombocytopenia, unspecified; I11.0 Hypertensive heart disease with heart failure; I48.91 Unspecified atrial fibrillation; E11.9 Type 2 diabetes mellitus without complications; I34.0 Nonrheumatic mitral (valve) insufficiency; I44.7 Left bundle-branch block, unspecified; R06.02 Shortness of breath; I25.10 Atherosclerotic heart disease of native coronary artery without angina pectoris; N95.9 Unspecified menopausal and perimenopausal disorder; Z79.4 Long term (current) use of insulin
CPT/HCPCS: 71010; 76937; 80048; 82948; 83036; 83735; 85007; 85014; 85027; 86850; 86900; 86901; 86920; 88305; 88311; 93005; 93318; 94002; 94150; 94640; 94664; 94667; 94668; J0131; J0282; J0690; J1644; J1815; J1940; J2150; J2250; J2370; J2405; J2710; J2720; J2930; J3010; J3370; J3475; J3480; J7120; P9047

== ENCOUNTER → 2016-06-22 | Outpatient (CLI) | payer MEDICARE, BC ==
[~2016-06-22] MED LIST: AMIO200T PO; AZIT250T74 PO; Aspirin Chew PO; CEFU1TAB43 PO; DOCU1CAP39 PO; ECOT81TA2 PO; ESTR1 PO; FLON0.053; GETGO ROLLING W1 MI1; LIPI10TA PO; MEDR2.5T19 PO; MEDR2.5T2 PO; METO25TA3 PO; MISC-163; OCUVCAP3 PO; PIOG30 PO; [UNRECOGNIZED DRUG - OTHER] PO
[2016-06-22 09:53] LABS: AUTOMATED NEUTROPHIL # 5.4 TH/MM3 (1.8-7.7); BASOPHIL # 0.1 TH/MM3 (0-0.2); BASOPHIL % 0.8 % (0.0-2.0); EOSINOPHIL % 0.5 % (0.0-4.0); HEMATOCRIT 41.6 % (35.0-46.0); HEMO FLAGS DIFF FINAL; LYMPH % 17.5 % (9.0-44.0); LYMPHOCYTE # 1.3 TH/MM3 (1.0-4.8); MEAN CELL VOLUME 95.8 FL (80.0-100.0); MEAN CORPUSCULAR HEMOGLOBIN 31.5 PG (27.0-34.0); MEAN CORPUSCULAR HGB CONC 32.9 % (32.0-36.0); MONO % 8.4 % (0.0-8.0); NEUT % 72.8 % (16.0-70.0); PLATELET COUNT 157 TH/MM3 (150-450); RED BLOOD COUNT 4.34 MIL/MM3 (4.00-5.30); RED CELL DISTRIBUTION WIDTH 14.2 % (11.6-17.2); WHITE BLOOD COUNT 7.5 TH/MM3 (4.0-11.0)
[2016-06-22 09:57] LABS: BACTERIA, URINE OCC /hpf; BLOOD, URINE NEG (NEG); COMMENT (UR) CULT NOT INDICATED; CULTURE IF INDICATED CULT NOT INDICATED; GLUCOSE,URINE NEG (NEG); KETONE, URINE NEG (NEG); MUCUS URINE FEW /lpf (OCC); NITRITE,URINE NEG (NEG); SQUAMOUS EPITHELIAL CELL URINE 1 /hpf (0-5); URINE COLOR YELLOW (YELLW/STRAW)
[2016-06-22 10:00] LABS: APTT (PATIENT) 26.1 SEC (24.3-30.1); INTERNATIONAL NORMALIZED RATIO 1.1 RATIO; PROTHROMBIN TIME - PATIENT 12.4 SEC (9.8-11.6)
[2016-06-22 10:30] LABS: BICARBONATE 25.4 MEQ/L (21.0-32.0)
--- NOTE | 2016-06-22 11:08 | RADRPT ---
EXAM DATE/TIME: 06/22/2016 10:43 [facility] COMPARISON: No previous studies available for comparison. INDICATIONS : Evaluate for Pneumonia, Pneumothorax, and communicable diseases. Pre-op heart valve replacement. MEDICAL HISTORY : None. SURGICAL HISTORY : None. ENCOUNTER: Initial ACUITY: 1 day PAIN SCORE: 0/10 LOCATION: Bilateral chest FINDINGS: Moderate hyperinflation is evident. Linear areas of parenchymal opacity are seen in both right mid l lupe and the left base. The heart is minimally enlarged, pulmonary vascularity is normal. Minimal vas cular calcifications are noted. CONCLUSION: Negative chest for acute disease. Charlie Victor MD FACR on June 22, 2016 at 11:03 Board Certified Radiologist. This report was verified electronically.
--- NOTE | 2016-06-22 11:15 | RADRPT ---
EXAM DATE/TIME: 06/22/2016 10:26 [facility] COMPARISON: No previous studies available for comparison. INDICATIONS : Preop cardiac surgery. MEDICAL HISTORY : Hypercholesterolemia. Hypertension. Renal calculi. Migraines. Dyspnea. UTI. SURGICAL HISTORY : section. Back surgery for disc removal. ENCOUNTER: Initial ACUITY: 1 day PAIN SCORE: 10 LOCATION: Bilateral neck PEAK SYSTOLIC VELOCITIES (cm/sec): ICA/CCA RATIO: Right: 1.1 Left: 0.8 ICA: Right: 84 Left: 73 CCA: Right: 75 Left: 90 ECA: Right: 59 Left: 47 VERTEBRAL: Right: 45 antegrade Left: 54 antegrade Elevated flow velocities and ICA/CCA ratios have been found to correlate with increased degrees of vessel stenosis, calculated as percentage of diameter relative to a normal segment of distal ICA/CCA FINDINGS: Antegrade flow is seen in both vertebral arteries. There is mild atherosclerotic plaquing at the orig in of both ICAs without any significant stenosis. CONCLUSION: No evidence for hemodynamically significant stenosis. Radha Agrawal MD on June 22, 2016 at 11:13 Board Certified Radiologist. This report was verified electronically.
[2016-06-22 13:32] LABS: MRSA PCR NEGATIVE (NEGATIVE); STAPH AUREUS PCR NEGATIVE (NEGATIVE)
--- NOTE | 2016-06-23 14:12 | EKG ---
Date Performed: 06/22/2016 Time Performed: 09:16:17 PTAGE: 70 years EKG: SINUS TACHYCARDIA POSSIBLE LEFT ATRIAL ENLARGEMENT MARKED LEFT AXIS DEVIATION LEFT BUNDLE B RANCH BLOCK ABNORMAL ECG Compared to prior tracing no significant change PREVIOUS TRACING : 03/07/2014 21.46 DOCTOR: Momo Hinds Interpretating Date/Time 06/23/2016 14:08:23
--- NOTE | 2016-06-28 10:44 | RSPPFT ---
DATE OF PROCEDURE: 06/22/16 COMMENTS: Spirometry with FVC of 1.8 predicted 2.9, FEV1 of 1.3 predicted 2.2, FEV1/FVC ratio 76% predicted 77%. IMPRESSION: On the basis of the above, flow volume loop is less than optimum but, if clinically indicated , lung volumes should be measured for a possible restrictive lung defect.
== END ==
LOC: CPRE 08:44
PROVIDERS: ATTEND Thoracic Surgery (Cardiothoracic Vascular Surgery)
DX: Z01.811 Encounter for preprocedural respiratory examination (principal); I50.40 Unspecified combined systolic (congestive) and diastolic (congestive) heart failure; I35.0 Nonrheumatic aortic (valve) stenosis; I34.0 Nonrheumatic mitral (valve) insufficiency; R94.31 Abnormal electrocardiogram [ECG] [EKG]; Z01.810 Encounter for preprocedural cardiovascular examination
CPT/HCPCS: 36415; 71020; 80048; 81001; 85025; 85610; 85730; 87640; 87641; 93005; 93880; 94010